=== PATIENT | female | born 1945 | race Caucasian/White ===

== ENCOUNTER 2019-10-22 13:04 | Inpatient (IN) | payer MEDICARE ==
--- NOTE | 2019-10-22 13:20 | CT ---
CT Brain WO Con HISTORY: Right facial droop and slurred speech COMPARISON: None. FINDINGS: Ventricular and cisternal system shows age-appropriate atrophy. There is fairly prominent d ecreased attenuation to the periventricular white matter consistent with chronic white matter change. There are no signs of intracerebral hemorrhage or extra-axial fluid collections the mastoid a ir cells and visualized sinuses are clear. IMPRESSION: No acute intracranial abnormalities. Findings telephoned to Dr. Fabian at 1316 hours.
[2019-10-22 13:49] LABS: #Eosinphils 0.2 thou/uL (0.0-0.7); #Lymphocytes 1.8 thou/uL (1.20-3.40); #Monocytes 0.7 thou/uL (0.11-0.59); #Neutrophils 3.6 thou/uL (1.40-6.50); %Basophils 0.5 % (0.0-1.0); %Eosinophils 3.4 % (0.0-10.0); %Lymphocytes 28.8 % (21.0-51.0); %Neutrophils 56.3 % (42.0-75.0); Hemoglobin 12.7 g/dL (12.0-16.0); Mean Corpuscular HGB CONC 33.4 g/dL (32.0-36.0); Mean Corpuscular Hemoglobin 28.5 pg (27.0-31.0); Mean Corpuscular Volume 85.4 fL (78.0-98.0); Mean Platelet Volume 8.4 fL (7.4-10.4); Platelet Count 219 thou/uL (130-400); RBC Distribution Width 12.8 % (11.5-14.5); Red Blood Cell (RBC) Count 4.45 mill/uL (4.20-5.40); White Blood Cell (WBC) Count 6.4 thou/uL (4.8-10.8)
--- NOTE | 2019-10-22 14:00 | RAD ---
XR Chest 1 View Portable HISTORY: Stroke symptoms. COMPARISON: None. FINDINGS: Heart size and mediastinum are within normal limits. The lungs are clear of infiltrates. Th e bones appear somewhat demineralized. IMPRESSION: No active intrathoracic disease.
--- NOTE | 2019-10-22 14:10 | CT ---
CT ANGIO HEAD AND NECK WITH IV CONTRAST WITH 3D RECONSTRUCTIONS: HISTORY: Stroke symptoms. Right sided facial droop. Slurred speech. FINDINGS: NECK: The lung apices are clear. The right lobe of the thyroid gland is enlarged. It appears to have nodules and would be better investigated with ultrasound. The left lobe is very small. The vocal cord region is unremarkable. There is some mildly prominent jugular chain nodes but all these are subcent imeter in size. Parotid and submandibular gland regions are unremarkable. Parapharyngeal spaces are c lear. The angiographic portion of the study yielded a good examination. There is a bovine type origin of th e left common carotid from the innominate. The left vertebral artery is dominant and forms the basila r artery. The right vertebral artery ends in a PICA branch. On the right side there is some focal calcified and soft plaque, at the origin of the right internal carotid artery but less than 50% narrowing by NASCET criteria. On the left side at the level of the internal carotid artery there is approximately 50% to 60% narrow ing at the bifurcation with some fairly dense plaque at this level. HEAD: The cavernous portions of both internal carotid arteries show moderate atherosclerotic change. The anterior and middle cerebral arteries and their branches are normal in appearance. The anterior c ommunicating artery is patent. There is a type origin of the posterior cerebral arteries, feedi ng the posterior cerebrals. The basilar artery is small but patent. No intraluminal thrombus or disse ction. IMPRESSION: Slightly less than 50% narrowing of the origin of the right internal carotid artery and 50% to 60% na rrowing of the origin of the left internal carotid artery. Other incidental findings as note above. Findings telephoned to Dr. Fabian at 1345 hours. CODE CR POS: OFF
[2019-10-22 14:11] LABS: ALT (SGPT) 7 U/L (8-55); AST (SGOT) 12 U/L (5-34); Albumin 3.6 g/dL (3.4-4.8); Alkaline Phosphatase 121 U/L (40-110); Anion Gap 10 mmol/L (10-20); BUN (Urea Nitrogen) 16 mg/dL (9.8-20.1); Bilirubin, Total 0.4 mg/dL (0.2-1.2); Calc. Creatinine Clearance 0 mL/min (70-130); Calcium 8.9 mg/dL (7.8-10.44); Carbon Dioxide 28 mmol/L (23-31); Chloride 101 mmol/L (98-107); Estimated GFR-MDRD 85; Globulin 2.4 g/dL (2.4-3.5); Glucose 89 mg/dL (83-110); Potassium 3.3 mmol/L (3.5-5.1); Sodium 136 mmol/L (136-145)
[2019-10-22 14:12] LABS: PTT 27.5 SEC (22.9-36.1); Prothrombin Time 13.4 SEC (12.0-14.7)
[2019-10-22] MEDS ORDERED: Iopamidol 370 76% 100 ML VIAL ONE (14:36)
[2019-10-22] MEDS ORDERED: Dextrose 50% Abboject 50 ML SYRINGE ONE (15:23)
[2019-10-22] MEDS ORDERED: D5 1/2 NS w/20 mEq KCL 1,000 ML IV SCH (17:45)
[2019-10-22] MEDS ORDERED: Ondansetron ODT 4 MG TAB PO PRN (18:21)
[2019-10-22] MEDS ORDERED: Calcium Carbonate 500 MG ChewTAB PO PRN (18:21)
[2019-10-22] MEDS ORDERED: Ondansetron PF 4 MG/2 ML Vial IVP PRN (18:21)
[2019-10-22] MEDS ORDERED: Dextrose 5% in Water 1,000 ML IV PRN (18:21)
[2019-10-22] MEDS ORDERED: Labetalol HCl 100 MG/20 ML VIAL SLOW IVP PRN (18:21)
[2019-10-22] MEDS ORDERED: niCARdipine 25 MG in Sodium Chloride 0.9% 250 ML 240 ML IVPB PRN (18:21)
[2019-10-22] MEDS ORDERED: Acetaminophen 500 MG TAB PO PRN (18:21)
[2019-10-22] MEDS ORDERED: Dextrose 50% Abboject 50 ML SYRINGE SLOW IVP PRN (18:21)
[2019-10-22] MEDS ORDERED: HumaLOG 300 UNITS/3 ML VIAL SC PRN (18:21)
[2019-10-22] MEDS: hydrALAZINE 20 MG/ML VIAL SLOW IVP PRN (19:36)
--- NOTE | 2019-10-22 19:53 | HP ---
PRIMARY CARE PROVIDER: Dr. Wendy Clarke. CHIEF COMPLAINT: Difficulty speaking and right-sided paralysis. HISTORY OF PRESENT ILLNESS: This is a 74-year-old female, who presented to [facility] Emergency Department after developing sudden onset of difficulty with speech and inability to move the right arm and right lower leg. The patient states she was at a [employer] dinner with her niece when the symptoms began abruptly while seated. Patient denied falling or head injury and any exposure history, fever, chills, cough, or congestion. Patient states she had right facial droop with the right-sided weakness, at which point, EMS personnel were notified. Patient denies any prior history of TIAs or stroke-like symptoms and states she is on 81 mg aspirin daily. Patient does admit to difficulty with ambulation over the last several weeks with two falls with head contusions at her home. The patient ambulates with use of a rolling walker, but has had syncopal events with evaluation, including EEG through the [facility]. The patient was placed on prophylactic seizure medication and has been taking this over the last 4 weeks. In the emergency room, patient underwent general evaluation with confirmation of active stroke symptoms with initial NIH score of 12. Patient underwent CT imaging of the brain showing no acute process and patient was deemed an appropriate candidate for consideration of alteplase. The patient received alteplase after appropriate criteria were met and at which point, patient's symptoms improved with near resolution of dysarthria and right-sided paralysis. 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 This was relayed to the ER personnel, at which point Neurosurgery on-call deemed her appropriate candidate to receive tPA. Patient was transferred to the Critical Care Unit for further evaluation and monitoring. PAST MEDICAL HISTORY: 1. Diabetes mellitus, type 1, insulin requiring. 2. Hypertension. 3. Syncope/falls. 4. Brain cavernoma. 5. Thyroid nodule. 6. Hypothyroidism. 7. Hyperlipidemia. PAST SURGICAL HISTORY: 1. Status post thyroid nodule removal. 2. Status post nephrectomy. CURRENT MEDICATIONS: 1. Keppra 500 mg p.o. b.i.d. 2. Aspirin 81 mg p.o. daily. 3. Fluoxetine 60 mg p.o. daily. 4. Lantus U-100, 80 units subcutaneously daily. 5. Vitamin D2 once a week. 6. Lipitor 20 mg p.o. at bedtime. 7. Losartan 50 mg p.o. daily. ALLERGIES: AMOXICILLIN. FAMILY HISTORY: Positive for diabetes mellitus and hypertension. SOCIAL HISTORY: Patient resides in [place], [place]. . Primary care provider, . Multiple falls related in the last 6 to 12 months. No current alcohol, tobacco, or illicit drug use. Ambulates with a rolling walker. REVIEW OF SYSTEMS: CONSTITUTIONAL: Negative for weight loss or gain, ability to conduct usual activities. SKIN: Negative for rash, itching. EYES: Negative for double vision, pain. ENT/MOUTH: Negative for nose bleeding, neck stiffness, pain, tenderness. CARDIOVASCULAR: Negative for palpitations, dyspnea on exertion, orthopnea. RESPIRATORY: Negative for shortness of breath, wheezing, cough, hemoptysis, fever or night sweats. GASTROINTESTINAL: Negative for poor appetite, abdominal pain, heartburn, nausea, vomiting, constipation, or diarrhea. GENITOURINARY: Negative for urgency, frequency, dysuria, nocturia. MUSCULOSKELETAL: Negative for pain, swelling. NEUROLOGIC/PSYCHIATRIC: Negative for anxiety, depression. ALLERGY/IMMUNOLOGIC: Negative for skin rash, bleeding tendency. Otherwise, negative, except as stated per HPI. PHYSICAL EXAMINATION: VITAL SIGNS: On admission, blood pressure 175/75, pulse 66, respiratory rate 16, temperature 98.6 degrees Fahrenheit, and O2 saturation 100% on room air. GENERAL APPEARANCE: This is a 74-year-old female, alert and oriented x3, pleasant, responsive, in no acute distress. HEENT: Pupils are equal, round, and reactive to light and accommodation. Extraocular muscles are intact. No scleral icterus. No conjunctival injection. Nares patent. OP is clear. Teeth in fair repair. NECK: Supple. No cervical adenopathy. No thyromegaly. No carotid bruits. No JVD appreciated. Cervical spine with full active and passive range of motion. No meningeal signs noted. CHEST: Lungs are clear to auscultation bilaterally. CARDIOVASCULAR: S1-S2 without noted murmur, rub, or gallop. ABDOMEN: Rounded, soft, nontender, and nondistended. Bowel sounds are positive in all 4 quadrants. There is no hepatosplenomegaly. No abdominal bruits. No rebound or guarding appreciated. EXTREMITIES: Warm and dry with fair turgor. No clubbing, cyanosis, or asymmetric edema appreciated. Pulses palpable distally at the dorsalis pedis, posterior tibial, and popliteal arteries bilaterally. Capillary refill less than 2 seconds. NEUROLOGIC: Minimal dysarthria. Right upper and lower extremity with 4/5 to 5/5 strength compared to the left upper and left lower extremity. Not observed ambulatory during this exam. Follows commands appropriately. Mild facial droop. PERTINENT LABORATORY AND X-RAY FINDINGS: Sodium 136, potassium 3.3, chloride 101, CO2 of 28, BUN 16, creatinine 0.68, glucose 89, and calcium 8.9. LFTs within normal limits. Troponin I negative x1. CBC showed a white blood cell count of 6.4, hemoglobin 12.7, hematocrit 38.0, and platelet count 219. PT 13.4, INR 1.0, and PTT 27.5. CT of the brain without contrast dated 10/22/2019, showed no acute intracranial process. Chronic white matter ischemic changes noted. CT angiogram of the head and neck dated 10/22/2019, showed slightly less than 50% narrowing of the origin of the right internal carotid artery and 50% to 60% narrowing of the origin of the left internal carotid artery. Right thyroid nodules noted. Portable chest x-ray dated 10/22/2019, showed no acute cardiopulmonary process. EKG dated 10/22/2019, by my interpretation shows sinus mechanism with heart rates in the 60s. Normal R-wave progression noted in the precordial leads. Normal axis. No acute ST-T wave changes appreciated. ASSESSMENT/PLAN: 1. Acute ischemic cerebrovascular accident. Patient initially received tPA in the emergency room after appropriate criteria were met. We will continue to monitor in the Critical Care Unit. Hold anticoagulation and aspirin per protocol x24 hours. Continue general stroke protocol, including PT, OT, and speech therapy evaluation. Current deficits near-complete resolution after receiving tPA. Check fasting lipid profile in the a.m. Neurology consult pending. 2. Expressive aphasia secondary to acute ischemic cerebrovascular accident. Near resolution after tPA administration. We will continue to monitor clinically. 3. Hypertension. Resume home blood pressure regimen once confirmed. Serial blood pressure monitoring. 4. Diabetes mellitus, type 1. Confirm home insulin regimen. Insulin sliding scale for reflexive coverage. Monitor for evidence of hypoglycemia. 5. Recurrent syncope. Continue current management as outlined previously. Neurology consult pending. Check MRI of the brain. 2D transthoracic echocardiogram pending. 6. Prophylaxis. SCDs while in bed. Pepcid 20 mg IV q.12 hours. General fall risk precautions. 7. Code status. Full. Surrogate medical decision maker is patient's daughter. Job ID: [id number]
[2019-10-22] MEDS: Famotidine/PF 20 mg/2ml Vial SLOW IVP SCH (20:48)
[2019-10-22] MEDS ORDERED: Atorvastatin Calcium 40 MG TAB PO SCH (21:00)
[2019-10-22] MEDS: Communication Order-Pharmacy FS SCH (21:42)
[2019-10-23] MEDS: hydrALAZINE 20 MG/ML VIAL SLOW IVP PRN (02:03)
--- NOTE | 2019-10-23 08:19 | CT ---
PRELIMINARY REPORT/[facility]/EMERGENCY AFTER HOURS PROCEDURE: CT BRAIN WO CON History: CVA F/U Comparison: None available. Technique: Multiple axial sections were obtained from the brain without administration of intravenous contrast. Findings: No intracranial hemorrhage or mass. Age indeterminate small left frontal lobe infarct. Sm all infarct in the left thalamus. Small chronic right basal ganglial infarcts. Possible small signaler irma left centrum semiovale infarct. There is moderate generalized age-related brain substance loss. There is decreased attenuation in the periventricular and deep white matter bilaterally likely secon taylor to small vessel disease. No midline shift or extra-axial collections. The sulci, ventricles, and basal cisterns are unremarkab le. Visualized orbits are normal. Visualized paranasal sinuses and mastoid air cells are clear. No fractu res. Impression: Age indeterminate infarct in the left thalamus and left frontal lobe. There are no previous examinations available to evaluate for interval change in any known lesions. ELECTRONICALLY SIGNED BY: Vicky Zhang MD Oct 23, 2019 5:29:13 AM SALES AND MARKETING EXECUTIVE This report is intended for review by the ordering physician only, in accordance of law. If you recei ve this report in error, please call [facility] at [phone]. FINAL REPORT BY DR. NATARAJAN EMERGENCY AFTER HOURS STUDY CT BRAIN NONCONTRAST: DATE: 10/23/19 TIME: 0439 hrs HISTORY: 74-year-old female follow-up stroke. Dysarthria and facial droop. COMPARISON: 10/22/19 at 1313 hours. FINDINGS: There is no midline shift or any other mass effect. There is no evidence of acute intracranial hemor rhage, large cortical infarct, obstructive hydrocephalus, or extraaxial fluid collection. The calvar ium is intact. There is diffuse parenchymal volume loss. There are low attenuation areas in the whi te matter. These are nonspecific, but in a patient of this age, they are probably chronic ischemic w lia matter changes due to microvascular atherosclerosis. Small-moderate sized, old infarction in medial left anterior inferior frontal lobe of indeterminate a ge, unchanged. Two tiny old lacunar infarcts in right basal ganglia/internal capsule, unchanged. Tiny lacunar infarction in the left thalamus. Uncertain whether this was present or not on previous s tudy. Very small, focal infarction at left paramedian upper posterior frontal lobe of indeterminate age, pr obably old, unchanged. IMPRESSION: 1. No acute intracranial findings. 2. Involutional changes and chronic ischemic white matter changes. 3. Small, old infarctions, including left anterior cerebral artery territory (2 of them); and tiny l acunar infarctions in the right basal ganglia, probably old; all unchanged since yesterday. 4. Tiny lacunar infarction in the left thalamus, of indeterminate age. 5. No major disagreement with preliminary report by [facility]. jn [] POS: OFF
[2019-10-23] MEDS ORDERED: FLU VACC TS2019-20(65YR UP)/PF 180 MCG/0.5 ML SYRINGE IM ONE (09:00)
--- NOTE | 2019-10-23 11:47 | MRI ---
Brain MRI without contrast: 10/23/2019 HISTORY: Recent stroke protocol, recent TPA administration, assess for acute infarction TECHNIQUE: Multiplanar multisequence MR imaging of the brain obtained without contrast FINDINGS: The diffusion weighted imaging demonstrates an area of acute infarction within the medial a nterior left frontal lobe within the left anterior cerebral artery territory measuring approximately 1.8 cm in greatest AP dimension. The gradient echo imaging demonstrates no evidence for intracranial hemorrhage in this region. The gradient echo imaging demonstrates a punctate focus of blooming artifact within the posterior med ial aspect of the left frontal lobe which may be related to calcification or age indeterminant punctate focus of hemorrhage. On the diffusion weighted imaging there is a faint focus of increased s ignal intensity within the occipital lobe posteriorly on the left which could signify a tiny focus of acute infarction or T2 shine through. A similar focus is noted within the basal ganglia on the lef t posterior to the left putamen. There is extensive periventricular, deep, and subcortical white matter T2 and FLAIR hyperintensity mohan ggesting severe small vessel disease. Regional bone marrow signal intensity appears within normal limits. Imaged paranasal sinuses and mastoid air cells well-aerated. Arterial flow voids at the axial level of the skull base appear grossly unremarkable on the T2-weighted imaging. IMPRESSION: Evidence of acute infarction on the left as detailed above. Punctate focus of blooming ar tifact within the posterior medial left frontal lobe may signify a punctate focus of age indeterminant hemorrhage and/or microscopic calcification. Severe small vessel disease.
[2019-10-23] MEDS: Famotidine/PF 20 mg/2ml Vial SLOW IVP SCH ×2 (12:03→20:40)
[2019-10-23] MEDS: HumaLOG 300 UNITS/3 ML VIAL SC PRN (12:10)
[2019-10-23 14:43] LABS: #Eosinphils 0.1 thou/uL (0.0-0.7); #Lymphocytes 1.6 thou/uL (1.20-3.40); #Monocytes 0.6 thou/uL (0.11-0.59); #Neutrophils 4.4 thou/uL (1.40-6.50); %Basophils 0.3 % (0.0-1.0); %Eosinophils 1.9 % (0.0-10.0); %Lymphocytes 23.6 % (21.0-51.0); %Neutrophils 65.1 % (42.0-75.0); Mean Corpuscular HGB CONC 33.5 g/dL (32.0-36.0); Mean Corpuscular Hemoglobin 28.4 pg (27.0-31.0); Mean Corpuscular Volume 84.8 fL (78.0-98.0); Mean Platelet Volume 8.3 fL (7.4-10.4); Platelet Count 229 thou/uL (130-400); Red Blood Cell (RBC) Count 4.59 mill/uL (4.20-5.40); White Blood Cell (WBC) Count 6.8 thou/uL (4.8-10.8)
[2019-10-23 15:03] LABS: Anion Gap 12 mmol/L (10-20); BUN (Urea Nitrogen) 10 mg/dL (9.8-20.1); Calc. Creatinine Clearance 76 mL/min (70-130); Calcium 8.9 mg/dL (7.8-10.44); Carbon Dioxide 26 mmol/L (23-31); Cardiac Risk 4.1 (Less than 4.5); Chloride 104 mmol/L (98-107); Cholesterol 134 mg/dl (< 200 Desired); Estimated GFR-MDRD 77; Glucose 182 mg/dL (83-110); HDL Cholesterol 33 mg/dL (>60 Neg Risk); LDL Cholesterol, Calculated 65 mg/dL; Potassium 3.5 mmol/L (3.5-5.1); Sodium 138 mmol/L (136-145); Triglycerides 180 mg/dL (Less than 150)
[2019-10-23 15:22] LABS: Free T4 (Free Thyroxine) 0.98 ng/dL (0.70-1.48)
--- NOTE | 2019-10-23 16:48 | CON ---
DATE OF TELEMEDICINE CONSULTATION: 10/23/2019 CHIEF COMPLAINT: Sudden onset of acute stroke, status post tPA. HISTORY OF PRESENT ILLNESS: The patient's daughter gave medical history. She was sitting up in a chair. She could not speak. She was paralyzed on the right side. She was able to understand instructions, but was unable to talk. She came in yesterday with an NIH stroke scale of 12, received tPA and post tPA, she has been pretty close to normal. At this time, NIH stroke scale is between 2 to 3. She has been falling and has been through a neurologist for evaluation of seizures. They are thinking she might have some unusual seizures and her MRI showed a cavernoma on the left side in the past according to ER physician. PREVIOUS MEDICAL HISTORY: The patient is diabetic and also hypertensive and has a prior cavernoma on the MRI scan in the past at [facility]. Previous medical history also includes hypertension, thyroid nodules, hypothyroidism, and hyperlipidemia. PAST SURGICAL HISTORY: Includes thyroid nodule removal and nephrectomy. SOCIAL HISTORY: She smokes 1 pack a day and lives by self and she is very independent. HOME MEDICATIONS: 1. Keppra 500 mg p.o. b.i.d. 2. Aspirin. 3. Fluoxetine. 4. Lantus insulin. 5. Lipitor. ALLERGIES: SHE IS ALLERGIC TO AMOXICILLIN. FAMILY HISTORY: Positive for diabetes and hypertension in her father, who in his 70s. Mother in her 80s. She has 8 siblings. There is no history of stroke in the family. LABORATORY DATA: Her current lab workup; white count 6.8, hemoglobin 13, hematocrit 38.9, and platelets 229. Chemistry; sodium 138, potassium 3.5, chloride 104, bicarb 26, BUN 10, creatinine 0.74, glucose 182. Triglycerides are slightly elevated at 180. TSH is 2.0067. Her CT angiogram was performed and did not show any specific intracranial or extracranial vascular occlusion other than 50% narrowing of origin of right ICA, 50% to 60% narrowing of the left ICA. MRI was completed and MRI of the brain showed presence of acute infarct on the left in the medial anterior frontal lobe and left anterior cerebral artery territory, approximately 1.8 cm in greatest dimension. She also has indeterminate hemorrhage and/or microscopic calcification in the medial left frontal lobe, this could be her old lesion. Echocardiogram is pending. REVIEW OF SYSTEMS: PULMONARY: Negative for shortness of breath or cough. GI: Negative for nausea, vomiting, or diarrhea. NEUROLOGIC: Positive for right-sided weakness, which is resolved and improved. DERMATOLOGIC: Negative for any skin lesions. HEMATOLOGIC: Negative for bleeding diatheses. PHYSICAL EXAMINATION: VITAL SIGNS: This morning, blood pressure was 155/76, pulse 102, respiratory rate 16, and temperature was normal at 98.3. GENERAL APPEARANCE: She was awake, alert, oriented to time, place, person. CHEST: Clear vesicular breathing. CARDIOVASCULAR: S1 and S2 heard, no murmurs. ABDOMEN: Soft. NEUROLOGIC: Higher intellectual functions normal. Orientation to time, place, and person. Appropriate conversation. Cranial nerves 2 through 12; Cranial nerve 7 , right facial weakness with a mild facial droop. Normal hearing bilaterally. Normal sensation of face bilaterally. Tongue midline. No atrophy noted. Normal extraocular movements. Motor; bulk normal, tone normal, strength 5/5 on the left side, and there was mild pronator drift in the right upper extremity and 4/5 strength in the right lower extremity, strength was 5/5 on the right upper extremity. Normal sensation bilaterally. Deep tendon reflexes 1+ throughout. Normal cerebellar exam. IMPRESSION: The patient is a 74-year-old lady with anterior cerebral artery territory acute infarct. She had good result following IV tPA and she is stable at this time. TREATMENT RECOMMENDATIONS: Please follow IV tPA acute stroke protocol and complete her stroke workup including echocardiogram and consider carotid Doppler and vascular surgery consult for ICA occlusion. This might likely need more monitoring and also agree with aspirin plus statin. Job ID: [id number] MTDD
--- NOTE | 2019-10-23 17:11 | PDOC.HOSPP ---
- Subjective Encounter Date: 10/23/19 Encounter Time: 17:00 Subjective: f/u for acute CVA involving L POOJA territory s/p tPA. Feels ok overall but remains weak. - Objective Vital Signs & Weight: Vital Signs (12 hours) Temp Pulse Pulse BP BP Pulse Ox 10/23/19 14:51 81 88 152/70 H 180/86 H 10/23/19 14:50 81 90 152/70 H 180/86 H 10/23/19 08:00 98.3 F 99 Weight Admit Weight 158 lb Weight 158 lb 4.67 oz Most Recent Monitor Data Heart Rate from ECG 89 NIBP 152/70 NIBP BP-Mean 97 Respiration from ECG 19 SpO2 98 I&O: 10/22/19 10/23/19 10/24/19 06:59 06:59 06:59 Intake Total 510 500 Output Total 601 500 Balance -91 0 Result Diagrams: 10/23/19 14:36 10/23/19 14:36 Additional Labs: Accuchecks 10/23/19 10/23/19 10/22/19 12:10 06:42 21:53 POC Glucose 198 H 142 H 145 H 10/22/19 18:49 POC Glucose 129 H Laboratory Tests 10/23/19 10/23/19 14:36 14:36 Triglycerides 180 H Cholesterol 134 LDL Cholesterol, Calc 65 HDL Cholesterol 33 Free T4 0.98 TSH 3rd Generation 2.0067 Radiology Reviewed by me: Yes (MRI brain - L POOJA territorial acute CVA) EKG Reviewed by me: Yes (Tele - SR) Hospitalist ROS - Medication Medications: Active Medications Generic Name Dose Route Start Last Admin Trade Name Freq PRN Reason Stop Dose Admin Acetaminophen 1,000 mg 10/22/19 18:21 10/22/19 20:48 Tylenol PO 1,000 mg Q6H PRN Administration Mild Pain (1-3) Famotidine 20 mg 10/22/19 21:00 10/23/19 12:03 Pepcid SLOW IVP 20 mg Q12HR REINALDO Administration Hydralazine HCl 10 mg 10/22/19 18:21 10/23/19 02:03 Apresoline SLOW IVP 10 mg Q4H PRN Administration SBP > 180 or DBP > 105 Insulin Human Lispro 0 units 10/22/19 18:21 10/23/19 12:10 Humalog SC 2 unit .MILD SLIDING SCALE PRN Administration Mild Correctional Scale Miscellaneous Information 1 each 10/22/19 18:21 10/22/19 21:42 Communication Order-Pharmacy FS 10/23/19 19:00 Not Given NOW [facility] Ondansetron HCl 4 mg 10/22/19 18:21 10/23/19 04:21 Zofran IVP 4 mg Q6H PRN Administration Nausea/Vomiting - Exam General Appearance: NAD, awake alert Eye: PERRL, anicteric sclera ENT: normocephalic atraumatic, no oropharyngeal lesions Neck: supple, symmetric, no JVD, no thyromegaly Heart: RRR, no murmur, no gallops, no rubs, normal peripheral pulses Respiratory: CTAB, no wheezes, no rales, no ronchi Gastrointestinal: soft, non-tender, non-distended, normal bowel sounds Extremities: no cyanosis, no clubbing, no edema Skin: normal turgor, no lesions Neurological - other findings: mild facial droop, dysarthria Musculoskeletal: normal tone, generalized weakness Psychiatric: normal affect, A&O x 3 Hosp A/P (1) Acute ischemic cerebrovascular accident (CVA) involving anterior cerebral artery territory Code(s): I63.529 - CEREB INFRC D/T UNSP OCCLS OR STENOS OF UNSP ANT CEREB ART Status: Acute Plan: Resume ASA, general stroke protocol, Rehab options (2) Dysarthria Code(s): R47.1 - DYSARTHRIA AND ANARTHRIA Status: Acute Plan: Secondary to #1, see above (3) HTN (hypertension) Code(s): I10 - ESSENTIAL (PRIMARY) HYPERTENSION Status: Chronic Qualifiers: Hypertension type: essential hypertension Qualified Code(s): I10 - Essential (primary) hypertension Plan: Resume home BP meds, serial monitoring (4) HLD (hyperlipidemia) Code(s): E78.5 - HYPERLIPIDEMIA, UNSPECIFIED Status: Chronic Plan: Lipitor 40mg HS (5) DM I (diabetes mellitus, type I) Status: Chronic Plan: ISS, resume home insulin regimen, ADA - Plan plan discussed w/ family, PT/OT, oncology social work, speech therapy, out of bed/ ambulate, DVT proph w/SCDs Stable currently Resume ASA 81mg daily Continue Lipitor 40mg HS Stroke protocol Rehab options Transfer to Stroke Unit
[2019-10-23] MEDS: Communication Order-Pharmacy FS SCH (20:37)
[2019-10-23] MEDS: levETIRAcetam 500 MG TAB PO SCH (20:40)
[2019-10-24] MEDS: hydrALAZINE 20 MG/ML VIAL SLOW IVP PRN (05:23)
[2019-10-24] MEDS: Aspirin 81 mg Enteric Coated Tablet PO SCH (07:59)
[2019-10-24] MEDS: FLUoxetine HCl 20 MG CAP PO SCH (07:59)
[2019-10-24] MEDS: Famotidine/PF 20 mg/2ml Vial SLOW IVP SCH ×2 (08:00→20:48)
[2019-10-24] MEDS: Atorvastatin Calcium 40 MG TAB PO SCH (08:00)
[2019-10-24] MEDS: levETIRAcetam 500 MG TAB PO SCH ×2 (08:00→20:48)
[2019-10-24] MEDS: Losartan 25 MG TAB PO SCH (08:00)
[2019-10-24] MEDS: Insulin Glargine 80 UNITS in Pre-Filled Syringe SC SCH (08:52)
[2019-10-24] MEDS ORDERED: INSULIN GLARGINE HUM REC ANLOG 80 UNIT SQ SCH (09:00)
[2019-10-24] MEDS ORDERED: Atorvastatin Calcium 20 MG TAB PO SCH (09:00)
[2019-10-24] MEDS ORDERED: Aspirin 325 mg Enteric Coated Tablet PO SCH (09:00)
[2019-10-24] MEDS: HumaLOG 300 UNITS/3 ML VIAL SC PRN (11:44)
--- NOTE | 2019-10-24 11:56 | PRG ---
DATE OF TELEMEDICINE SERVICE: 10/24/2019 CHIEF COMPLAINT: Acute stroke. INTERVAL HISTORY: The patient is in fact improving rapidly and is doing well today. MRI report was reviewed and she has a left acute infarct in the POOJA territory, approximately 1.8 cm in greatest dimension. Echocardiogram was also completed yesterday and reviewed, and there is no specific intracardiac clot other than aortic valve disease and mild annular calcification of the mitral valve. OBJECTIVE: VITAL SIGNS: Blood pressure 167/82, pulse rate is 95, temperature 98.5. GENERAL APPEARANCE: Well-built, well-nourished lady, who seems comfortable. Strength 5/5 throughout in both upper and lower extremities today. No facial droop noted. IMPRESSION: The patient with significant recovery of function, status post IV tPA. At this time, she is very stable and I do think she can be moved out of the ICU to the regular stroke floor and start rehab or tPA protocol. Agree with aspirin and statin for stroke prophylaxis, and the patient can be discharged during this week once she is more stable. Job ID: [id number] [facility]ITAL[facility]umtaz
--- NOTE | 2019-10-24 12:47 | PDOC.HOSPP ---
- Subjective Encounter Date: 10/24/19 Encounter Time: 10:45 Subjective: Expresses no complaint.. - Objective Vital Signs & Weight: Vital Signs (12 hours) Temp Pulse Pulse Pulse BP BP BP 10/24/19 11:52 98.2 F 10/24/19 09:21 95 92 167/82 H 165/74 H 10/24/19 09:00 98.5 F 10/24/19 08:00 10/24/19 06:27 10/24/19 05:23 67 204/81 H 10/24/19 04:00 98.3 F Pulse Ox Pulse Ox Pulse Ox 10/24/19 11:52 10/24/19 09:21 95 95 10/24/19 09:00 10/24/19 08:00 93 L 10/24/19 06:27 96 10/24/19 05:23 10/24/19 04:00 Weight Admit Weight 158 lb Weight 158 lb 4.67 oz Most Recent Monitor Data Heart Rate from ECG 81 NIBP 164/68 NIBP BP-Mean 100 Respiration from ECG 17 SpO2 96 I&O: 10/23/19 10/24/19 10/25/19 06:59 06:59 06:59 Intake Total 510 550 Output Total 601 1450 1 Balance -91 -900 -1 Result Diagrams: 10/23/19 14:36 10/23/19 14:36 Additional Labs: Accuchecks 10/24/19 10/24/19 10/23/19 11:39 06:16 21:45 POC Glucose 178 H 172 H 167 H 10/23/19 17:35 POC Glucose 185 H Hospitalist ROS - Medication Medications: Active Medications Generic Name Dose Route Start Last Admin Trade Name Freq PRN Reason Stop Dose Admin Acetaminophen 1,000 mg 10/22/19 18:21 10/22/19 20:48 Tylenol PO 1,000 mg Q6H PRN Administration Mild Pain (1-3) Aspirin 81 mg 10/24/19 09:00 10/24/19 07:59 Ecotrin PO 81 mg DAILY REINALDO Administration Atorvastatin Calcium 40 mg 10/24/19 09:00 10/24/19 08:00 Lipitor PO 40 mg DAILY REINALDO Administration Famotidine 20 mg 10/22/19 21:00 10/24/19 08:00 Pepcid SLOW IVP 20 mg Q12HR REINALDO Administration Fluoxetine HCl 60 mg 10/24/19 09:00 10/24/19 07:59 Prozac PO 60 mg DAILY REINALDO Administration Hydralazine HCl 10 mg 10/22/19 18:21 10/24/19 05:23 Apresoline SLOW IVP 10 mg Q4H PRN Administration SBP > 180 or DBP > 105 Insulin Glargine 80 units/ 0.8 mls @ 0 mls/hr 10/24/19 09:00 10/24/19 08:52 Miscellaneous Medication SC 0.8 mls QAM REINALDO Administration Insulin Human Lispro 0 units 10/22/19 18:21 10/24/19 11:44 Humalog SC 2 unit .MILD SLIDING SCALE PRN Administration Mild Correctional Scale Levetiracetam 500 mg 10/23/19 21:00 10/24/19 08:00 Keppra PO 500 mg BID REINALDO Administration Losartan Potassium 50 mg 10/24/19 09:00 10/24/19 08:00 Cozaar PO 50 mg DAILY REINALDO Administration Ondansetron HCl 4 mg 10/22/19 18:21 10/23/19 04:21 Zofran IVP 4 mg Q6H PRN Administration Nausea/Vomiting - Exam General Appearance: NAD Neck: no JVD Heart: RRR Respiratory: CTAB Gastrointestinal: soft Extremities: no edema Neurological: no weakness Hosp A/P (1) Acute ischemic cerebrovascular accident (CVA) involving anterior cerebral artery territory Code(s): I63.529 - CEREB INFRC D/T UNSP OCCLS OR STENOS OF UNSP ANT CEREB ART Status: Acute (2) Dysarthria Code(s): R47.1 - DYSARTHRIA AND ANARTHRIA Status: Acute (3) DM I (diabetes mellitus, type I) Status: Chronic (4) HLD (hyperlipidemia) Code(s): E78.5 - HYPERLIPIDEMIA, UNSPECIFIED Status: Chronic (5) HTN (hypertension) Code(s): I10 - ESSENTIAL (PRIMARY) HYPERTENSION Status: Chronic Qualifiers: Hypertension type: essential hypertension Qualified Code(s): I10 - Essential (primary) hypertension - Plan Good response to tpa,.. On ASA, Statin. Awaiting rehab transfer..
[2019-10-25] MEDS: levETIRAcetam 500 MG TAB PO SCH ×2 (09:59→20:26)
[2019-10-25] MEDS: Famotidine/PF 20 mg/2ml Vial SLOW IVP SCH ×2 (09:59→20:26)
[2019-10-25] MEDS: Aspirin 81 mg Enteric Coated Tablet PO SCH (09:59)
[2019-10-25] MEDS: Losartan 25 MG TAB PO SCH (10:00)
[2019-10-25] MEDS: Atorvastatin Calcium 40 MG TAB PO SCH (10:00)
[2019-10-25] MEDS: Insulin Glargine 80 UNITS in Pre-Filled Syringe SC SCH (10:00)
[2019-10-25] MEDS: FLUoxetine HCl 20 MG CAP PO SCH (10:00)
[2019-10-25] MEDS: HumaLOG 300 UNITS/3 ML VIAL SC PRN (12:19)
--- NOTE | 2019-10-25 13:09 | PDOC.HOSPP ---
- Subjective Encounter Date: 10/25/19 Encounter Time: 12:35 Subjective: Expresses no complaint.. - Objective Vital Signs & Weight: Vital Signs (12 hours) Temp Pulse BP BP Pulse Ox Pulse Ox 10/25/19 08:39 100 140/94 H 169/78 H 99 10/25/19 08:00 98.3 F 97 10/25/19 06:41 92 L 10/25/19 04:00 98.7 F Weight Admit Weight 158 lb Weight 2.533 oz Most Recent Monitor Data Heart Rate from ECG 71 NIBP 164/137 NIBP BP-Mean 146 Respiration from ECG 19 SpO2 78 I&O: 10/24/19 10/25/19 10/26/19 06:59 06:59 06:59 Intake Total 550 270 480 Output Total 1450 576 300 Balance -900 -306 180 Result Diagrams: 10/23/19 14:36 10/23/19 14:36 Additional Labs: Accuchecks 10/25/19 10/25/19 10/24/19 11:18 06:40 20:36 POC Glucose 194 H 113 H 142 H 10/24/19 16:28 POC Glucose 79 Hospitalist ROS - Medication Medications: Active Medications Generic Name Dose Route Start Last Admin Trade Name Freq PRN Reason Stop Dose Admin Acetaminophen 1,000 mg 10/22/19 18:21 10/22/19 20:48 Tylenol PO 1,000 mg Q6H PRN Administration Mild Pain (1-3) Aspirin 81 mg 10/24/19 09:00 10/25/19 09:59 Ecotrin PO 81 mg DAILY REINALDO Administration Atorvastatin Calcium 40 mg 10/24/19 09:00 10/25/19 10:00 Lipitor PO 40 mg DAILY REINALDO Administration Famotidine 20 mg 10/22/19 21:00 10/25/19 09:59 Pepcid SLOW IVP 20 mg Q12HR REINALDO Administration Fluoxetine HCl 60 mg 10/24/19 09:00 10/25/19 10:00 Prozac PO 60 mg DAILY REINALDO Administration Hydralazine HCl 10 mg 10/22/19 18:21 10/24/19 05:23 Apresoline SLOW IVP 10 mg Q4H PRN Administration SBP > 180 or DBP > 105 Insulin Glargine 80 units/ 0.8 mls @ 0 mls/hr 10/24/19 09:00 10/25/19 10:00 Miscellaneous Medication SC 0.8 mls QAM REINALDO Administration Insulin Human Lispro 0 units 10/22/19 18:21 10/25/19 12:19 Humalog SC 2 unit .MILD SLIDING SCALE PRN Administration Mild Correctional Scale Levetiracetam 500 mg 10/23/19 21:00 10/25/19 09:59 Keppra PO 500 mg BID REINALDO Administration Losartan Potassium 50 mg 10/24/19 09:00 10/25/19 10:00 Cozaar PO 50 mg DAILY REINALDO Administration Ondansetron HCl 4 mg 10/22/19 18:21 10/23/19 04:21 Zofran IVP 4 mg Q6H PRN Administration Nausea/Vomiting - Exam General Appearance: NAD Neck: no JVD Heart: RRR Respiratory: CTAB Gastrointestinal: soft Extremities: no edema Neurological: no weakness Psychiatric: normal affect (Oriented x 2) Hosp A/P (1) Acute ischemic cerebrovascular accident (CVA) involving anterior cerebral artery territory Code(s): I63.529 - CEREB INFRC D/T UNSP OCCLS OR STENOS OF UNSP ANT CEREB ART Status: Acute (2) Dysarthria Code(s): R47.1 - DYSARTHRIA AND ANARTHRIA Status: Acute Plan: Improved significantly.. (3) DM I (diabetes mellitus, type I) Status: Chronic (4) HLD (hyperlipidemia) Code(s): E78.5 - HYPERLIPIDEMIA, UNSPECIFIED Status: Chronic (5) HTN (hypertension) Code(s): I10 - ESSENTIAL (PRIMARY) HYPERTENSION Status: Chronic Qualifiers: Hypertension type: essential hypertension Qualified Code(s): I10 - Essential (primary) hypertension - Plan Good response to tpa,.. On ASA, Statin. For rehab transfer..
[2019-10-26] MEDS: Insulin Glargine 80 UNITS in Pre-Filled Syringe SC SCH (09:33)
[2019-10-26] MEDS: Losartan 25 MG TAB PO SCH (09:34)
[2019-10-26] MEDS: Aspirin 81 mg Enteric Coated Tablet PO SCH (09:34)
[2019-10-26] MEDS: FLUoxetine HCl 20 MG CAP PO SCH (09:35)
[2019-10-26] MEDS: levETIRAcetam 500 MG TAB PO SCH ×2 (09:36→20:55)
[2019-10-26] MEDS: Atorvastatin Calcium 40 MG TAB PO SCH (09:36)
[2019-10-26] MEDS: Famotidine/PF 20 mg/2ml Vial SLOW IVP SCH ×2 (09:36→20:55)
--- NOTE | 2019-10-26 10:44 | PDOC.HOSPP ---
- Subjective Encounter Date: 10/26/19 Encounter Time: 10:25 Subjective: Expresses no complaint.. - Objective Vital Signs & Weight: Vital Signs (12 hours) Temp 10/26/19 08:00 98.1 F 10/26/19 04:00 98.6 F 10/26/19 00:00 98.6 F Weight Admit Weight 158 lb Weight 151 lb 14.376 oz Most Recent Monitor Data Heart Rate from ECG 62 NIBP 167/73 NIBP BP-Mean 104 Respiration from ECG 13 SpO2 95 I&O: 10/25/19 10/26/19 10/27/19 06:59 06:59 06:59 Intake Total 270 1050 160 Output Total 576 6385 950 Balance -129 -219 -585 Result Diagrams: 10/23/19 14:36 10/23/19 14:36 Additional Labs: Accuchecks 10/26/19 10/25/19 10/25/19 06:09 22:10 18:14 POC Glucose 94 152 H 135 H 10/25/19 10/25/19 17:07 11:18 POC Glucose 65 L 194 H Hospitalist ROS - Medication Medications: Active Medications Generic Name Dose Route Start Last Admin Trade Name Freq PRN Reason Stop Dose Admin Acetaminophen 1,000 mg 10/22/19 18:21 10/22/19 20:48 Tylenol PO 1,000 mg Q6H PRN Administration Mild Pain (1-3) Aspirin 81 mg 10/24/19 09:00 10/26/19 09:34 Ecotrin PO 81 mg DAILY REINALDO Administration Atorvastatin Calcium 40 mg 10/24/19 09:00 10/26/19 09:36 Lipitor PO 40 mg DAILY REINALDO Administration Famotidine 20 mg 10/22/19 21:00 10/26/19 09:36 Pepcid SLOW IVP 20 mg Q12HR REINALDO Administration Fluoxetine HCl 60 mg 10/24/19 09:00 10/26/19 09:35 Prozac PO 60 mg DAILY REINALDO Administration Hydralazine HCl 10 mg 10/22/19 18:21 10/24/19 05:23 Apresoline SLOW IVP 10 mg Q4H PRN Administration SBP > 180 or DBP > 105 Insulin Glargine 80 units/ 0.8 mls @ 0 mls/hr 10/24/19 09:00 10/26/19 09:33 Miscellaneous Medication SC 0.8 mls QAM REINALDO Administration Insulin Human Lispro 0 units 10/22/19 18:21 10/25/19 12:19 Humalog SC 2 unit .MILD SLIDING SCALE PRN Administration Mild Correctional Scale Labetalol HCl 10 mg 10/22/19 18:21 10/25/19 22:08 Normodyne SLOW IVP 10 mg Q10MIN PRN Administration SBP > 180 or DBP > 105 Levetiracetam 500 mg 10/23/19 21:00 10/26/19 09:36 Keppra PO 500 mg BID REINALDO Administration Losartan Potassium 50 mg 10/24/19 09:00 10/26/19 09:34 Cozaar PO 50 mg DAILY REINALDO Administration Ondansetron HCl 4 mg 10/22/19 18:21 10/23/19 04:21 Zofran IVP 4 mg Q6H PRN Administration Nausea/Vomiting - Exam General Appearance: NAD Neck: no JVD Heart: RRR Respiratory: CTAB Gastrointestinal: soft Extremities: no edema Neurological - other findings: no dysarthria Psychiatric: normal affect Hosp A/P (1) Acute ischemic cerebrovascular accident (CVA) involving anterior cerebral artery territory Code(s): I63.529 - CEREB INFRC D/T UNSP OCCLS OR STENOS OF UNSP ANT CEREB ART Status: Acute (2) Dysarthria Code(s): R47.1 - DYSARTHRIA AND ANARTHRIA Status: Resolved (3) DM I (diabetes mellitus, type I) Status: Chronic (4) HLD (hyperlipidemia) Code(s): E78.5 - HYPERLIPIDEMIA, UNSPECIFIED Status: Chronic (5) HTN (hypertension) Code(s): I10 - ESSENTIAL (PRIMARY) HYPERTENSION Status: Chronic Qualifiers: Hypertension type: essential hypertension Qualified Code(s): I10 - Essential (primary) hypertension - Plan Good response to tpa,.. On ASA, Statin. For rehab transfer vs home..
[2019-10-27] MEDS: Insulin Glargine 80 UNITS in Pre-Filled Syringe SC SCH (09:07)
[2019-10-27] MEDS: Losartan 25 MG TAB PO SCH (09:09)
[2019-10-27] MEDS: Aspirin 81 mg Enteric Coated Tablet PO SCH (09:09)
[2019-10-27] MEDS: FLUoxetine HCl 20 MG CAP PO SCH (09:10)
[2019-10-27] MEDS: Atorvastatin Calcium 40 MG TAB PO SCH (09:12)
[2019-10-27] MEDS: Famotidine/PF 20 mg/2ml Vial SLOW IVP SCH (09:13)
[2019-10-27] MEDS: levETIRAcetam 500 MG TAB PO SCH ×2 (09:13→21:06)
--- NOTE | 2019-10-27 09:36 | PDOC.HOSPP ---
- Subjective Encounter Date: 10/27/19 Encounter Time: 09:36 Subjective: cc: f/u for acute stroke subjective: Patient is new to me. Seen and present examined at bedside this morning. Chart and labs and imaging results reviewed. Patient sister at bedside. Patient denies any acute complaints. Still has some weakness in right arm and leg and slurring of her speech but has improved overall. Offers no other acute complaints. Sister notes patient has improved. Patient reports taking aspirin 81 mg at home prior to arrival. Nursing staff notes no acute events. - Objective Vital Signs & Weight: Vital Signs (12 hours) Temp Pulse Resp BP Pulse Ox 10/27/19 07:45 99 F 87 16 149/77 H 93 L 10/27/19 04:00 98.9 F 70 18 144/71 H 94 L 10/26/19 23:15 99 F 78 18 155/73 H 92 L Weight Admit Weight 158 lb Weight 149 lb 12.8 oz Most Recent Monitor Data Heart Rate from ECG 74 NIBP 150/76 NIBP BP-Mean 100 Respiration from ECG 13 SpO2 95 I&O: 10/26/19 10/27/19 10/28/19 06:59 06:59 06:59 Intake Total 1050 880 Output Total 1275 950 Balance -225 -70 Result Diagrams: 10/23/19 14:36 10/23/19 14:36 Additional Labs: Accuchecks 10/27/19 10/27/19 10/26/19 08:40 06:08 19:56 POC Glucose 79 85 150 H 10/26/19 10/26/19 10/26/19 15:53 11:39 09:38 POC Glucose 60 L 83 105 Hospitalist ROS - Review of Systems Other: ROS: Pertinent positives noted as per subjective. Remainder review systems negative. - Medication Medications: Active Medications Generic Name Dose Route Start Last Admin Trade Name Freq PRN Reason Stop Dose Admin Acetaminophen 1,000 mg 10/22/19 18:21 10/22/19 20:48 Tylenol PO 1,000 mg Q6H PRN Administration Mild Pain (1-3) Aspirin 81 mg 10/24/19 09:00 10/27/19 09:09 Ecotrin PO 81 mg DAILY REINALDO Administration Atorvastatin Calcium 40 mg 10/24/19 09:00 10/27/19 09:12 Lipitor PO 40 mg DAILY REINALDO Administration Famotidine 20 mg 10/22/19 21:00 10/27/19 09:13 Pepcid SLOW IVP 20 mg Q12HR REINALDO Administration Fluoxetine HCl 60 mg 10/24/19 09:00 10/27/19 09:10 Prozac PO 60 mg DAILY REINALDO Administration Hydralazine HCl 10 mg 10/22/19 18:21 10/24/19 05:23 Apresoline SLOW IVP 10 mg Q4H PRN Administration SBP > 180 or DBP > 105 Insulin Glargine 80 units/ 0.8 mls @ 0 mls/hr 10/24/19 09:00 10/27/19 09:07 Miscellaneous Medication SC 0.8 mls QAM REINALDO Administration Insulin Human Lispro 0 units 10/22/19 18:21 10/25/19 12:19 Humalog SC 2 unit .MILD SLIDING SCALE PRN Administration Mild Correctional Scale Labetalol HCl 10 mg 10/22/19 18:21 10/25/19 22:08 Normodyne SLOW IVP 10 mg Q10MIN PRN Administration SBP > 180 or DBP > 105 Levetiracetam 500 mg 10/23/19 21:00 10/27/19 09:13 Keppra PO 500 mg BID REINALDO Administration Losartan Potassium 50 mg 10/24/19 09:00 10/27/19 09:09 Cozaar PO 50 mg DAILY REINALDO Administration Ondansetron HCl 4 mg 10/22/19 18:21 10/23/19 04:21 Zofran IVP 4 mg Q6H PRN Administration Nausea/Vomiting Hosp A/P - Plan PHYSICAL EXAMINATION: General appearance: Elderly female who is awake, alert, oriented, not in any distress HEENT: Normocephalic atraumatic, pupils equally round, extraocular muscles intact, facial asymmetry with slurred speech noted Cardiovascular: S1 and S2 regular rate and rhythm, no harsh murmur, no chest wall tenderness Respiratory: Nonlabored respiration bilateral posterior auscultation, symmetrical chest expansion, no wheezing, no rales Abdomen: Soft, nontender, nondistended, no peritoneal sign Extremity: No edema, no cyanosis, no deformities, full passive range of motion Skin: Warm to touch without rash or pallor or abrasion Neurological: Facial asymmetry with slurred speech, right upper extremity drift and right lower extremity drift. Decreased right hand farmer and grazier. Sensation intact throughout body. Left arm and leg unremarkable. Gait not assessed. LABS AND IMAGING: no new labs or imaging CTA less than 50% right ICA, 50 to 60% left ICA, LDL 65 ASSESSMENT AND PLAN: Acute left frontal lobe CVA involving left POOJA territory. Status post TPA. Patient has had neurological improvement but is not back towards her baseline. Therapy teams recommend acute rehabilitation. Continue PT, OT, speech therapy. Patient was on home aspirin 81 mg and is still on aspirin 81 mg in hospital. Discussed with neurologist today regarding this and will increase aspirin to 325 mg daily for secondary stroke prevention. Continue Lipitor 40 mg nightly. LDL 65. Type 1 DM. monitor accuchecks. Hypertension, benign DVT px Disposition: Patient is medically stable for discharge to acute rehabilitation. Await approval.
[2019-10-27] MEDS ORDERED: Aspirin 81 mg Enteric Coated Tablet PO SCH (10:15)
[2019-10-27] MEDS: HumaLOG 300 UNITS/3 ML VIAL SC PRN (11:09)
[2019-10-27] MEDS: Famotidine 20 MG TAB PO SCH (21:07)
[2019-10-28 05:59] VITALS: BMI 23.8
[2019-10-28] MEDS ORDERED: Aspirin 325 mg Enteric Coated Tablet PO SCH (09:00)
[2019-10-28] MEDS: FLUoxetine HCl 20 MG CAP PO SCH (09:15)
[2019-10-28] MEDS: Insulin Glargine 80 UNITS in Pre-Filled Syringe SC SCH (09:15)
[2019-10-28] MEDS: Famotidine 20 MG TAB PO SCH (09:15)
[2019-10-28] MEDS: levETIRAcetam 500 MG TAB PO SCH (09:15)
[2019-10-28] MEDS: Atorvastatin Calcium 40 MG TAB PO SCH (09:15)
[2019-10-28] MEDS: Losartan 25 MG TAB PO SCH (09:15)
--- NOTE | 2019-10-28 13:55 | PDOC.EVN ---
Event Note - Event Note Event Note: [id number] Discharge
--- NOTE | 2019-10-28 15:05 | DIS ---
DATE OF ADMISSION: 10/22/2019 DATE OF DISCHARGE: 10/28/2019 DISCHARGE DIAGNOSES: 1. Acute left frontal lobe cerebrovascular accident, status post tPA. 2. Type 1 diabetes. 3. Hypertension, benign. HOSPITAL COURSE: Ms. Hernandez is a 74-year-old female, who was admitted on 10/22/2019. On workup, the patient was found to have acute left frontal lobe CVA involving the left POOJA territory, status post tPA. The patient has had neurological improvement, but is not back to her baseline. Therapy team recommended acute rehabilitation including PT, OT, and speech therapy. The patient's aspirin was increased from 81 mg to 325 mg p.o. daily, continue Lipitor 40 mg p.o. daily. Today, the patient appears hemodynamically stable with blood pressure 135/54, temperature 98.4, pulse 77, respiratory rate is 16. The patient is being discharged in stable condition. DISPOSITION: The patient is being discharged to acute rehabilitation. DISCHARGE MEDICATIONS: Please see home medication reconciliation form. Job ID: [id number]
[2019-10-28 16:02] VITALS: BP 142/60; TEMP 98.7
[2019-10-29] MEDS ORDERED: Insulin Glargine 40 UNITS in Pre-Filled Syringe 1 EACH SC SCH (09:00)
--- NOTE | 2019-10-29 22:14 | PQF ---
DARYA BROWN MOHAMED S MD [id number] CLINICAL DOCUMENTATION CLARIFICATION FORM: POST DISCHARGE Addendum to original discharge summary date: ____ Late entry note date: 10/30/2019 DATE: 10/29/19 ATTN: Hi Harmon Please exercise your independent, professional judgment in responding to the clarification form. Clinical indicators are provided on the bottom of this form for your review In your clinical opinion based on clinical findings below, can you please further clarify clinical significance of MRI findings for Frontal lobe hemorrhage if: Please check appropriate box(s): [ ] Frontal lobe hemorrhage is clinically significant to patient's condition [ ] Findings on MRI not clinically significant [ ] Other diagnosis [ / ] Unable to determine In addition, please specify: Present on Admission (POA): [ ] Yes [ ] No [ ] Unable to determine For continuity of documentation, please document condition throughout progress notes and discharge summary. Thank You. CLINICAL INDICATORS - SIGNS / SYMPTOMS / LABS H&P p1 10/22 Dr Wisdom Developing sudden onset of difficulty with speech and inability to move the right arm and right lower leg H&P p1 10/22 Dr Wisdom confirmation of active stroke symptoms with initial NIH score of 12 H&P p4 10/22 Dr Wisdom Expressive Aphasia secondary tp Acute Ischemic cerebrovascular accident Brain MRI 10/23 - Impression : Evidence of Acute infarction on the left. 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 All Rights Reserved [email or web address] [email or web address] [not provided] [email or web address]
== END 2019-10-28 19:02 | DRG 62 ==
LOC: ERS 13:04 → CCU 15:20 → 2SE 10-26 18:09
PROVIDERS: ADMIT Family Medicine; ATTEND Family Medicine
DX: I63.522 Cerebral infarction due to unspecified occlusion or stenosis of left anterior cerebral artery (principal); G81.91 Hemiplegia, unspecified affecting right dominant side; I10 Essential (primary) hypertension; E10.9 Type 1 diabetes mellitus without complications; R29.714 NIHSS score 14; R40.2362 Coma scale, best motor response, obeys commands, at arrival to emergency department; R40.2142 Coma scale, eyes open, spontaneous, at arrival to emergency department; R40.2252 Coma scale, best verbal response, oriented, at arrival to emergency department; R47.81 Slurred speech; E03.9 Hypothyroidism, unspecified; E78.5 Hyperlipidemia, unspecified; R47.01 Aphasia; F17.200 Nicotine dependence, unspecified, uncomplicated; R47.1 Dysarthria and anarthria; Z90.5 Acquired absence of kidney; Z79.899 Other long term (current) drug therapy; Z79.82 Long term (current) use of aspirin; Z79.4 Long term (current) use of insulin
CPT/HCPCS: 36415; 36416; 70450; 70496; 70498; 70551; 71045; 80048; 80053; 80061; 84439; 84443; 84484; 85025; 85610; 85730; 86850; 86900; 86901; 93005; 93306; 94760; 96361; 96365; 96374; 96375; 99292; J0360; J1815; J2405; J2997; Q9967; S0028